=== PATIENT | male | born 1940 | race Caucasian/White ===

== ENCOUNTER 2017-01-14 14:54 | Emergency (ER) | payer MEDICARE, OTHER | END 2017-01-14 17:10 | disposition short-term general hospital (02) | LOC: ER 14:54 | DX: S62.621A Displaced fracture of middle phalanx of left index finger, initial encounter for closed fracture (principal); W31.2XXA Contact with powered woodworking and forming machines, initial encounter; Y92.019 Unspecified place in single-family (private) house as the place of occurrence of the external cause; I51.9 Heart disease, unspecified; I10 Essential (primary) hypertension; Z79.899 Other long term (current) drug therapy; Z88.8 Allergy status to other drugs, medicaments and biological substances | CPT/HCPCS: 73130; 96372; 99070; 99283; 99284-25 ==